=== PATIENT | female | born 1950 | race Caucasian/White ===

== ENCOUNTER 2017-01-25 18:45 | Emergency (ER) | payer OTHER ==
[2017-01-25 19:15] VITALS: BP 149/73
--- NOTE | 2017-01-25 20:23 | ED GI/GU/ABDOMINAL COMPLAINT ---
History of Present Illness General Chief Complaint: Female Urogenital Problems Stated Complaint: "MY UTERUS IS FALLING" Source: patient Exam Limitations: no limitations Vital Signs & Intake/Output Vital Signs & Intake/Output Vital Signs Date Time Temp Pulse Resp B/P Pulse O2 O2 Flow FiO2 Ox Delivery Rate 01/25 1915 98.2 70 22 149/73 98 ED Intake and Output 01/26 0000 01/25 1200 Intake Total Output Total Balance Patient 170 lb Weight Allergies Coded Allergies: Penicillins (YEAST INFECT 01/25/17) aspirin (VOMITING 01/25/17) Reconcile Medications Alprazolam (Alprazolam ER) 1 MG TAB.ER.24H 1 TAB PO QAM ANXIETY (Reported) Alprazolam 1 MG TABLET 1 TAB PO QPM SLEEP (Reported) Cevimeline HCl 30 MG CAPSULE 1 CAP PO BID DRY MOUTH (Reported) Gabapentin 300 MG CAPSULE 1 CAP PO QPM NERVE PAIN (Reported) Levothyroxine Sodium 75 MCG TABLET 1 TAB PO DAILY THYROID (Reported) Modafinil 200 MG TABLET 2 TAB PO QAM SLEEP APNEA (Reported) Trazodone HCl 50 MG TABLET 2 TAB PO QPM SLEEP (Reported) Ziprasidone HCl 80 MG CAPSULE 1 CAP PO QPM MENTAL HEALTH (Reported) with food Triage Note: PER PT UTERUS IS FALLING OUT FEELS LIKE A BALLOON DOWN THERE. Triage Nurses Notes Reviewed? yes ? n Is pt currently ? No HPI: Ms. Guillen is a 66-year-old female past medical history of head and neck cancer s/p resection, bipolar, DM, CESAR and thyroid problems presenting to the emergency department for possible uterine prolapse. The patient states she came home from work today and took a shower. While she was cleaning her genital area, patient felt a large balloon-like structure. She called her [id number] who is a nurse who suggested that she might have uterine prolapse in to be evaluated in the emergency department. Denies any pain but states it feels uncomfortable given the fullness between her legs. Patient denies any abdominal pain, nausea, vomiting, diarrhea. Patient denies fever, chills, dysuria, increased urinary frequency. She's had 1 vaginal deliveries previously in 1969. Not currently sexually active and does not believe she has an STD. (INGA LEDEZMA,SHANNON) Past History Travel History Traveled to [place] past 21 day No Medical History Any Pertinent Medical History? see below for history Neurological: NONE EENT: NONE Cardiovascular: NONE Respiratory: NONE Gastrointestinal: NONE Hepatic: NONE Renal: NONE Musculoskeletal: NONE Psychiatric: NONE Endocrine: THYROID Cancer(s): TONSIL Surgical History Surgical History: R head/neck resection Psychosocial History What is your primary language Icelandic Tobacco Use: Never used Family History Hx Contributory? No (SHANNON XIONG MD) Review of Systems Review of Systems Constitutional: Denies: see HPI. Comments Review of systems: See HPI, All other systems negative. Constitutional, no chills no fever, no malaise no weight loss HEENT: No visual changes no sore throat no congestion, no ear pain Cardiovascular: No chest pain , no palpitation , no orthopnea no ankle swelling Skin, no jaundice no rashes, no change in skin Respiratory: No dyspnea no cough no sputum no hemoptysis GI: No nausea no vomiting, no diarrhea, no bloating/constipation : +genital mass. No dysuria No hematuria, no frequency, no discharge Muscle skeletal: No joint pain, no joint swelling, no back pain, no neck pain, Neurologic: No numbness no confusion, no headache Psych: No stress no anxiety no depression,. Heme/endocrine: No bruising no bleeding no polyuria no polydipsia Immunology: No lymphadenopathy, no splenectomy (SHANNON XIONG MD) Physical Exam Physical Exam Gastrointestinal: normal bowel sounds Comments: Well-developed well-nourished person in no acute distress HEENT: Normal EENT exam; PERRL, EOMI, no nystagmus. HEAD is atraumatic. moist mucous membranes. Neck: Supple, no lymphadenopathy, normal range of motion without pain or tenderness Back: Nontender, no CVA tenderness. Full range of motion Cardiovascular: Regular rate and rhythms no murmurs rubs or gallops, normal JVP Respiratory: Chest nontender.There were no bony deformities, no asymmetry. No respiratory distress. Patient speaking in full complete sentences. Breath sounds clear to auscultation bilaterally: NO W/R/R Abdomen: Soft, nontender nondistended, no appreciable organomegaly. Normal bowel sounds. No rebound/guarding, No appreciable enlargement of the abdominal aorta, No ascites. Extremity: No edema, full range of motion of extremities, normal and equal pulses bilaterally, 5 out of 5 strength noted to bilateral upper and lower extremities Neuro: Alert oriented x3, motor sensory normal, cranial nerves II through XII grossly intact. There were no obvious focal neurologic abnormalities. Genital: Normal external genitalia. No evidence of prolapsed uterus. Normal bimanual exam without TTP over uterus or ovaries. Skin: No appreciable rash on exposed skin, skin is warm and dry. Psych: Mood and affect is normal, memory and judgment is normal. Core Measures ACS in differential dx? No Severe Sepsis Present: No Septic Shock Present: No (SHANNON XIONG MD) Progress Differential Diagnosis: hemorrhoids, ovarian cyst, PID/cervicitis, UTI/pyelo, prolapsed uterus Plan of Care: Orders Procedure Date/time Status URINALYSIS 01/25 2015 Complete CULTURE,URINE 01/25 2014 Active Laboratory Tests 01/25/172030: Urinalysis LIGHT H, Urine Color YEL, Urine Clarity HAZY H, Urine pH 7.0, Ur Specific Ferguson 1.010, Urine Protein NEG, Urine Ketones NEG, Urine Nitrite NEG, Urine Bilirubin NEG, Urine Urobilinogen 0.2, Ur Leukocyte Esterase NEG, Ur Microscopic SEDIMENT EXAMINED, Urine RBC 3-5, Urine Bacteria FEW H, Urine Hemoglobin LARGE H, Urine Glucose NEG Microbiology 01/25 2031 URINE ROUT: Urine Culture - RECD 66-year-old female presenting to the ED with complaints of genital mass. Patient states she was shower when she felt something pop out of her vagina. Patient is concerned for uterine prolapse however on physical evaluation the genitals are within normal appearance. There is no evidence of the uterus being outside of the body. Bimanual exam is within normal limits. Patient is not currently sexually active and has not been for months therefore unlikely that she has an STD. After examination, the patient states that the uterus must have gone back with in the body. We'll do a UA rule out urinary tract infection. UA negative for infection. Patient will be discharged home with follow-up with her OBGYN to assess for possib uterine prolapse. (SHANNON XIONG MD) Initial ED EKG: none (SHANNON XIONG MD) Departure Departure Time of Disposition: 2112 Disposition: HOME OR SELF CARE Condition: Stable Clinical Impression Primary Impression: Normal physical examination Referrals: UNKNOWN (PCP) Additional Instructions: It is possible that you had uterine prolapse while urine shower. Here in the emergency department, your uterus does not appear to be outside the body. I would recommend you do not strain to have a bowel movement or urine as it might cause the uterus prolapse again. Please follow-up with your HAND WASHER about an evaluation for possible uterine prolapse as they might need to see you for a pessary or a surgical procedure to keep the uterus in place. Departure Forms: Customer Survey General Discharge Information (INGA LEDEZMA,SHANNON) PA/BAR CAPTAIN Co-Sign Statement Statement: ED Attending supervision documentation- [X] I saw and evaluated the patient. I have also reviewed all the pertinent lab results and diagnostic results. I agree with the findings and the plan of care as documented in the PA's/BAR CAPTAIN's documentation. [X] I have reviewed the ED Record and agree with the PA's/BAR CAPTAIN's documentation. [] Additions or exceptions (if any) to the PAs/BAR CAPTAIN's note and plan are summarized below: [] (ALLI LEDEZMA,AIDA Cosme)
[2017-01-25] MEDS ORDERED: LEVOTHYROXINE75 MCG PO (20:37)
[2017-01-25] MEDS ORDERED: TRAZODONE HCL50 M1 PO (20:38)
[2017-01-25] MEDS ORDERED: ZIPRASIDONE HCL80 M1 PO (20:39)
[2017-01-25] MEDS ORDERED: CEVIMELINE HCL30 M1 PO (20:39)
[2017-01-25] MEDS ORDERED: ALPRAZOLAM ER1 MG PO (20:40)
[2017-01-25] MEDS ORDERED: MODAFINIL200 M1 PO (20:40)
[2017-01-25] MEDS ORDERED: ALPRAZOLAM1 M2 PO (20:40)
[2017-01-25] MEDS ORDERED: GABAPENTIN300 M2 PO (20:41)
== END 2017-01-25 21:21 ==
LOC: ERH 18:45
DX: Z71.1 Person with feared health complaint in whom no diagnosis is made (principal)
CPT/HCPCS: 81001; 87086